=== PATIENT | female | born 1990 | race Caucasian/White ===

== ENCOUNTER 2019-04-01 18:52 | Outpatient (CLI) | payer OTHER ==
[~2019-04-01] VITALS: Ht 175.3 cm; Wt 102.7 kg
[2019-04-01 20:08] VITALS: BP 117/65
[2019-04-01] MEDS ORDERED: TERBUTALINE 1 MG/ML, 1ML ONE (20:53)
[2019-04-01] MEDS ORDERED: TERBUTALINE 1 MG/ML, 1ML SQ PRN (21:00)
[2019-04-01 21:11] LABS: MICROSCOPIC NOT IND
== END 2019-04-02 00:27 | disposition home or self-care (01) ==
LOC: LDOP 18:52
PROVIDERS: ATTEND Obstetrics & Gynecology
DX: O60.03 Preterm labor without delivery, third trimester (principal); Z3A.32 32 weeks gestation of pregnancy
CPT/HCPCS: 59025; 81003; 87086; 96372; 99211; J3105; G0463

== ENCOUNTER 2019-05-02 12:22 | Outpatient (CLI) | payer OTHER ==
[~2019-05-02] VITALS: Ht 175.3 cm; Wt 107.3 kg
[2019-05-02 13:00] LABS: BASOPHILS # (AUTO) 0.05 x10^3/uL (0-0.1); BASOPHILS % (AUTO) 0 % (0-1); EOSINOPHILS # (AUTO) 0.11 x10^3/uL (0-0.4); EOSINOPHILS % (AUTO) 1 % (1-7); LYMPHOCYTES # (AUTO) 1.85 x10^3/uL (1-3.4); LYMPHOCYTES % (AUTO) 13 % (22-44); MD NO; MEAN CORPUSCULAR HGB CONC 33.9 g/dL (32.4-35.8); MEAN CORPUSCULAR VOLUME 85.7 fL (80-100); MEAN PLATELET VOLUME 11.4 fL (7.4-10.4); MONOCYTES # (AUTO) 0.87 x10^3/uL (0.2-0.8); MONOCYTES % (AUTO) 6 % (2-9); NEUTROPHILS # (AUTO) 11.02 x10^3/uL (1.8-6.8); NEUTROPHILS % (AUTO) 79 % (42-75); PLATELET COUNT 188 x10^3/uL (130-400); RED BLOOD COUNT 4.66 x10^6/uL (3.82-5.3); RED CELL DISTRIBUTION WIDTH 13.9 % (9.6-15.2)
[2019-05-02 13:11] LABS: ALANINE AMINOTRANSFERASE 18 U/L (12-78); ALBUMIN 2.4 g/dL (3.4-5.0); ANION GAP 9 mmol/L (5-15); CALCIUM 8.1 mg/dL (8.5-10.1); CHLORIDE 109 mmol/L (98-107); CREATININE 0.52 mg/dL (0.55-1.02)
[2019-05-02 13:14] LABS: ALKALINE PHOSPHATASE 111 U/L (45-117); BILIRUBIN,TOTAL 0.4 mg/dL (0.2-1.0); TOTAL PROTEIN 5.8 g/dL (6.4-8.2)
[2019-05-02] MEDS ORDERED: ALBUTEROL SULFATE 2.5 MG/3 ML ONE (14:08)
[2019-05-02] MEDS ORDERED: ALBUTEROL SULFATE 2.5MG/0.5ML NPPB ONE (14:30)
[2019-05-02] MEDS ORDERED: ACETAMINOPHEN 500 MG TABLET ONE (14:34)
[2019-05-02 14:43] LABS: RAPID INFLUENZA A Negative (Negative); RAPID INFLUENZA B Negative (Negative)
== END 2019-05-02 14:57 | disposition home or self-care (01) ==
LOC: LDOP 12:22
PROVIDERS: ATTEND Obstetrics & Gynecology
DX: O26.893 Other specified pregnancy related conditions, third trimester (principal); O12.03 Gestational edema, third trimester; R51 Headache; R06.09 Other forms of dyspnea; R06.2 Wheezing; Z3A.37 37 weeks gestation of pregnancy
CPT/HCPCS: 36415; 59025; 80053; 82570; 84156; 84550; 85025; 87400; 99211; J7611; G0463

== ENCOUNTER 2019-05-15 10:00 | Inpatient (IN) | payer OTHER ==
[~2019-05-15] VITALS: Ht 175.3 cm; Wt 107.7 kg
[2019-05-15 10:30] VITALS: BP 128/81
[2019-05-15] MEDS ORDERED: LACTATED RINGERS 1,000 ML IVBOLUS ONE (10:30)
[2019-05-15] MEDS ORDERED: METOCLOPRAMIDE 5 MG/ML, 2ML IV ONE (10:30)
[2019-05-15] MEDS ORDERED: SODIUM CITRATE/CITRIC ACID 30 ML UDC PO ONE (10:30)
[2019-05-15] MEDS ORDERED: CEFAZOLIN 1,000 MG ONE (10:46)
[2019-05-15] MEDS ORDERED: OXYTOCIN 10 UNITS/ML, 1ML ONE (10:46)
[2019-05-15] MEDS ORDERED: HYDROmorphone 2 MG/ML, 1ML ONE (10:46)
[2019-05-15] MEDS ORDERED: FENTANYL PF 100 MCG/2ML ONE (10:46)
[2019-05-15] MEDS ORDERED: ONDANSETRON 2MG/ML, 2ML ONE (10:46)
[2019-05-15] MEDS ORDERED: SODIUM CHLORIDE 0.9% PF 10ML ONE ×2 (10:46)
[2019-05-15 10:53] LABS: MEAN CORPUSCULAR HEMOGLOBIN 29.7 pg (27.0-34.8); MEAN CORPUSCULAR HGB CONC 34.3 g/dL (32.4-35.8); MEAN CORPUSCULAR VOLUME 86.5 fL (80-100); MEAN PLATELET VOLUME 11.4 fL (7.4-10.4); PLATELET COUNT 224 x10^3/uL (130-400); RED BLOOD COUNT 4.79 x10^6/uL (3.82-5.3); RED CELL DISTRIBUTION WIDTH 13.9 % (9.6-15.2)
[2019-05-15] MEDS ORDERED: LACTATED RINGERS 1,000 ML IV SCH ×4 (11:11→13:30)
[2019-05-15 11:12] LABS: BASOPHILS # (AUTO) 0.04 x10^3/uL (0-0.1); BASOPHILS % (AUTO) 0 % (0-1); EOSINOPHILS % (AUTO) 1 % (1-7); LYMPHOCYTES # (AUTO) 2.92 x10^3/uL (1-3.4); LYMPHOCYTES % (AUTO) 20 % (22-44); MD SCAN; MONOCYTES # (AUTO) 0.88 x10^3/uL (0.2-0.8); MONOCYTES % (AUTO) 6 % (2-9); NEUTROPHILS # (AUTO) 10.26 x10^3/uL (1.8-6.8); NEUTROPHILS % (AUTO) 72 % (42-75)
[2019-05-15] MEDS ORDERED: NEWBORN KIT ONE (11:42)
[2019-05-15] MEDS ORDERED: SODIUM CITRATE/CITRIC ACID 30 ML UDC ONE (11:43)
[2019-05-15] MEDS ORDERED: METOCLOPRAMIDE 5 MG/ML, 2ML ONE (11:43)
[2019-05-15] MEDS ORDERED: OXYTOCIN 30U/ 0.9% NaCL 500ML 500 ML ONE (12:06)
[2019-05-15] MEDS ORDERED: KETOROLAC 30 MG/1 ML ONE (13:12)
[2019-05-15] MEDS ORDERED: MISOPROSTOL 200 MCG TABLET PR PRN (13:30)
[2019-05-15] MEDS ORDERED: ACETAMINOPHEN 325 MG TABLET PO PRN (13:30)
[2019-05-15] MEDS ORDERED: ONDANSETRON 2MG/ML, 2ML IV PRN (13:30)
[2019-05-15] MEDS ORDERED: OXYcodone IR 5MG TABLET PO PRN (13:30)
[2019-05-15] MEDS ORDERED: IBUPROFEN 600 MG TABLET PO PRN (13:30)
[2019-05-15] MEDS ORDERED: SIMETHICONE 80 MG CHEW TAB PO PRN (13:30)
[2019-05-15] MEDS ORDERED: MORPHINE SULFATE 4 MG/ML, 1ML IVPush PRN (13:30)
[2019-05-15] MEDS: OXYTOCIN 30U/ 0.9% NaCL 500ML 500 ML IV SCH ×2 (13:57→23:12)
[2019-05-15 16:01] VITALS: BP 128/62
[2019-05-15 19:00] VITALS: BP 102/63
[2019-05-15] MEDS: KETOROLAC 30 MG/1 ML IV SCH (19:30)
[2019-05-15 21:55] LABS: BASOPHILS # (AUTO) 0.06 x10^3/uL (0-0.1); BASOPHILS % (AUTO) 0 % (0-1); EOSINOPHILS % (AUTO) 1 % (1-7); LYMPHOCYTES # (AUTO) 2.47 x10^3/uL (1-3.4); LYMPHOCYTES % (AUTO) 17 % (22-44); MD NO; MEAN CORPUSCULAR HEMOGLOBIN 29.1 pg (27.0-34.8); MEAN CORPUSCULAR HGB CONC 33.8 g/dL (32.4-35.8); MEAN CORPUSCULAR VOLUME 86.1 fL (80-100); MEAN PLATELET VOLUME 11.3 fL (7.4-10.4); MONOCYTES # (AUTO) 0.83 x10^3/uL (0.2-0.8); MONOCYTES % (AUTO) 6 % (2-9); NEUTROPHILS % (AUTO) 76 % (42-75); PLATELET COUNT 188 x10^3/uL (130-400); RED BLOOD COUNT 4.37 x10^6/uL (3.82-5.3)
[2019-05-15] MEDS: OXYcodone/APAP 5/325MG TABLET PO PRN (23:17)
[2019-05-15 23:34] VITALS: BP 115/71
[2019-05-16] MEDS: KETOROLAC 30 MG/1 ML IV SCH ×4 (01:15→20:01)
[2019-05-16 03:30] VITALS: BP 102/62
[2019-05-16] MEDS: OXYcodone/APAP 5/325MG TABLET PO PRN ×4 (06:24→19:09)
[2019-05-16] MEDS: DOCUSATE 100 MG CAPSULE PO PRN ×2 (07:47→19:10)
[2019-05-16] MEDS: PRENATAL VIT/IRON/FA 1 EACH TABLET PO SCH (07:47)
[2019-05-16 08:28] VITALS: BP 118/78
[2019-05-16] MEDS: OXYTOCIN 30U/ 0.9% NaCL 500ML 500 ML IV SCH ×2 (10:57→19:12)
[2019-05-16 20:00] VITALS: BP 112/70
[2019-05-17] MEDS: OXYcodone/APAP 5/325MG TABLET PO PRN ×3 (00:56→13:04)
[2019-05-17] MEDS: KETOROLAC 30 MG/1 ML IV SCH ×2 (02:14→07:25)
[2019-05-17] MEDS: OXYTOCIN 30U/ 0.9% NaCL 500ML 500 ML IV SCH (05:12)
[2019-05-17] MEDS: DOCUSATE 100 MG CAPSULE PO PRN (08:11)
[2019-05-17] MEDS: PRENATAL VIT/IRON/FA 1 EACH TABLET PO SCH (08:11)
[2019-05-17 08:20] VITALS: BP 127/83
[2019-05-17] MEDS ORDERED: DOCU100C33 PO (11:37)
[2019-05-17] MEDS ORDERED: OXYC-302 PO (11:38)
[2019-05-17] MEDS ORDERED: IBUP-1222 PO (11:38)
[2019-05-17] MEDS ORDERED: DIPHTHERIA-TETANUS ADULT 0.5ML IM-VACC ONE (12:00)
[2019-05-17] MEDS ORDERED: DIPH,PERTUSS(ACELL),TET VAC/PF NC IM-VACC ONE (12:30)
== END 2019-05-17 13:10 | disposition home or self-care (01) | DRG 787 ==
LOC: LDIP 10:00 → 2NW 15:05
PROVIDERS: ADMIT Obstetrics & Gynecology; ATTEND Obstetrics & Gynecology
PROC: 10D00Z1 Extraction of Products of Conception, Low, Open Approach (ICD-10-PCS; principal; 2019-05-17)
DX: O32.1XX0 Maternal care for breech presentation, not applicable or unspecified (principal); O99.354 Diseases of the nervous system complicating childbirth; F32.9 Major depressive disorder, single episode, unspecified; G43.909 Migraine, unspecified, not intractable, without status migrainosus; O99.344 Other mental disorders complicating childbirth; Z37.0 Single live birth; Z3A.39 39 weeks gestation of pregnancy; Z23 Encounter for immunization
CPT/HCPCS: 36415; 85025; 86592; 86850; 86900; 90715; G0378; J0690; J1170; J1885; J2405; J3010; J2590; J2765; J7120